=== PATIENT | female | born 1990 | race Caucasian/White ===

== ENCOUNTER 2019-03-11 19:29 | Inpatient (IN) | payer OTHER ==
[~2019-03-11] VITALS: Ht 167.6 cm; Wt 81.0 kg
[~2019-03-11 19:29] MED LIST: COLACE100 MG PO; IBUPROFEN400 MG PO; IMITREX5 MG NS; NAPROXEN500 MG PO; NORCO 5-325 TA1 EACH PO; NUVARING VAGIN1 EACH VG; PERCOCET 7.5-31 EACH PO; SERTRALINE HCL25 MG PO; VITAFOL-OB+DHA1 EACH PO; ZOFRAN4 MG PO
[2019-03-11] MEDS ORDERED: ZOLOFT25 MG PO (21:46)
[2019-03-11] MEDS ORDERED: FIBER500 MG PO (21:47)
[2019-03-11] MEDS ORDERED: IRON325 M1 PO (21:47)
--- NOTE | 2019-03-11 23:03 | PR ---
[facility] [address] [facility] [place], [place] [address] Signed Progress Notes IP Datetime Report Generated by CPPamdini: 03/11/2019 23:03 PROGRESS NOTES: [id number] Impression: Normal progression of labor Procedures: Artificial ROM; Sterile Vag Exam Plan: Continue present management Informed Consent Obtain: Vaginal Delivery; Risks, Benefits and Alternatives Discussed VITAL SIGNS: [id number] Vital Signs: Reviewed; Within Normal Limits EXAM: [id number] Dilatation: 4.0 Effacement: 90 Station: -2 Uterine Contractions: q 1 to 2 min MEMBRANES: [id number] Membrane Status: Intact ROM Note: AROM with moderate clear fluid seen Comments: Becoming more comfortable after epidural. Progressing slowly. Will continue. Fetus A: [id number] FHR Baseline: 145 Variability: Moderate 6-25bpm Accelerations: None Decelerations: None FHR Category: Category II Presentation: Vertex Comments on Fetus A: reassuring with moderate variability Fetus B: [id number] Signing Physician: Daina Thurston MD Copies: ~ *Electronically Signed* 03/11/19 6593 DAINA THURSTON MD PATIENT NAME: TOPHER GANDHI PROGRESS NOTE DATE OF : [birth year] PHYSICIAN: DAINA THURSTON MD RPT #: [id number] REPORT IS CONFIDENTIAL AND NOT TO BE RELEASED WITHOUT AUTHORIZATION
--- NOTE | 2019-03-13 08:20 | PR ---
[facility] [address] [facility] [place], [place] [address] Signed PP Progress Notes Datetime Report Generated by CPN: 03/13/2019 08:20 SUBJECTIVE: [id number] Pain: Within normal limits Vital Signs: [id number] Vital Signs: Reviewed; Within Normal Limits EXAM: [id number] Cardiovascular: Not Done Respiratory: Not Done Abdomen/Uterus: Abnormal Lochia: Normal Vulva/Perineum: Not Done Breasts: Not Done CVA Tenderness: Not Done Extremities: Normal Incision: Not Applicable Progress: Normal Exam Comments: Fundus firm, NT @ U-1 H/H 11.6/34.4, WBC 16.7, plat 259k IMPRESSION/PLAN/PROCEDURES: [id number] Impression: Normal progression Plan: Discharge Procedures: Rhogam Progress Notes: Doing well. She is ready for D/C. Signing Physician: Daina Thurston MD Copies: ~ *Electronically Signed* 03/13/19819 DAINA THURSTON MD PATIENT NAME: TOPHER GANDHI STANLEY PROGRESS NOTE DATE OF : 91 PHYSICIAN: DAINA THURSTON MD RPT #: [id number] REPORT IS CONFIDENTIAL AND NOT TO BE RELEASED WITHOUT AUTHORIZATION
== END 2019-03-13 11:25 | disposition home or self-care (01) | DRG 807 ==
LOC: FBCO 19:29 → FBC 21:20 → FBCO 03-15 08:31
PROVIDERS: ADMIT Obstetrics & Gynecology
PROC: 10907ZC Drainage of Amniotic Fluid, Therapeutic from Products of Conception, Via Natural or Artificial Opening (ICD-10-PCS; 2019-03-11)
PROC: 00HU33Z Insertion of Infusion Device into Spinal Canal, Percutaneous Approach (ICD-10-PCS; 2019-03-11)
PROC: 3E0R3BZ Introduction of Anesthetic Agent into Spinal Canal, Percutaneous Approach (ICD-10-PCS; 2019-03-11)
PROC: 10E0XZZ Delivery of Products of Conception, External Approach (ICD-10-PCS; principal; 2019-03-12)
PROC: 3E0234Z Introduction of Serum, Toxoid and Vaccine into Muscle, Percutaneous Approach (ICD-10-PCS; 2019-03-13)
DX: O43.113 Circumvallate placenta, third trimester (principal); Z37.0 Single live birth; Z3A.39 39 weeks gestation of pregnancy; O76 Abnormality in fetal heart rate and rhythm complicating labor and delivery; O99.344 Other mental disorders complicating childbirth; F32.9 Major depressive disorder, single episode, unspecified; O26.893 Other specified pregnancy related conditions, third trimester; Z67.41 Type O blood, Rh negative; Z79.899 Other long term (current) drug therapy
CPT/HCPCS: 01960; 36415; 59025; 83030; 85027; 86850; 86900; 86901; 99213; J2590; J2790; J7120

== ENCOUNTER 2023-04-19 09:32 | Day surgery (SDC) | payer OTHER ==
[~2023-04-19] VITALS: Ht 167.6 cm; Wt 75.8 kg
--- NOTE | ~2023-04-19 | OR ---
[facility] [address] [place], [place] [address] Draft DATE OF OPERATION: 04/19/2023 SURGEON: Jeevan Marcos MD PREOPERATIVE DIAGNOSIS: Chronic constipation. POSTOPERATIVE DIAGNOSIS: Normal-appearing colon. PROCEDURE: Total colonoscopy to cecum with cold biopsy of rectum. ANESTHESIA: Intravenous sedation fentanyl 100 mcg, Versed 6 mg. INDICATION: This 32-year-old white woman has had essentially lifelong significant and severe constipation. She will go sometimes 2-3 weeks without bowel movement. She has tried probiotic medication, magnesium based preparation and so forth, none of which have been too successful for her. She does have abdominal pain associated with her chronic constipation. She has had occasional blood per rectum. Her only medications include phentermine as well as a probiotic pill and a control ring. She is admitted at this time to undergo colonoscopy to better characterize her problem, understand the risk of bleeding, infection, and perforation. FINDINGS: The prep was excellent. Complete colonoscopy was undertaken of the cecum without question. She had no sign of stricture, neoplasm, diverticular problems, colitis, or other abnormality. PROCEDURE IN DETAIL: The patient was brought to the endoscopy suite and placed in lateral decubitus position given intravenous sedation to the point of slurred speech and nystagmus. Digital rectal examination was normal. An Olympus video colonoscope was passed in the rectum and manipulated throughout the colon ultimately intubating the cecum itself. The ileocecal valve and appendiceal orifice were normal. The scope was withdrawn. Examination throughout showed no evidence of abnormality in any way. Biopsies were taken of the rectum and retroflexed PATIENT NAME: TOPHER GANDHI OPERATIVE REPORT DATE OF : [birth year] REPORT #: [id number] PHYSICIAN: JEEVAN MARCOS MD PCP: TITA REDDY REPORT IS CONFIDENTIAL AND NOT TO BE RELEASED WITHOUT AUTHORIZATION [address] [address] Draft view was performed and was normal. Scope was removed. The patient was taken to recovery room in good condition. CONCLUDING DIAGNOSIS: Normal colon. She clinically has a chronic constipation problem, likely of a dysmotility origin. For now, we will prescribe MiraLAX one scoop p.o. daily and set up for a Sitz fer stool transit study. She will return to see me after that study is complete. MD ZELDA Rogel/NEFTALI /[id number] cc: Tita Reddy PA-C Copies: TITA REDDY ~ PATIENT NAME: TOPHER GANDHI STANLEY OPERATIVE REPORT DATE OF : [birth year] REPORT #: [id number] PHYSICIAN: JEEVAN MARCOS MD PCP: TITA REDDY PAC REPORT IS CONFIDENTIAL AND NOT TO BE RELEASED WITHOUT AUTHORIZATION
[~2023-04-19 09:32] MED LIST changes: +ELURYNG VAGINA1 EACH VG; +FIBER500 MG PO; +IRON325 M1 PO; +PHENTERMINE HCL15 MG PO; +ZOLOFT25 MG PO
[2023-04-19 09:47] VITALS: BP 122/87
[2023-04-19 12:03] VITALS: BP 107/67
--- NOTE | 2023-04-19 12:09 | NUR ---
04/19/23 1209 Maria Alejandra Osborn 1111 PT ARRIVED IN PACU SLEEPY WITH NO C/O'S. ABD SOFT. IV PATENT IN RAC. 1120 DR AT BEDSIDE. ALL QUESTIONS ANSWERED. 1126 SITTING UP IN BED SIPPING ON WATER. PILL TAKEN FOR SITZ MARKER TEST AND ALL INSTRUCTIONS GIVEN. 1135 GETTING DRESSED. 1150 IV DC'D. TIP INTACT. TERESO AND DANIELA OVER SITE. 1152 DC INSTRUCTIONS GIVEN TO PT/SPOUSE. COPY OF XRAY ORDER GIVEN TO ADMITTING. LEFT VIA W/C.
--- NOTE | 2023-04-21 14:46 | PATH ---
[facility] [address] [place], [place] [address] Signed SPECIMEN(S): A RECTAL BIOPSY SPECIMEN SOURCE: A. RECTAL BIOPSY CLINICAL HISTORY: Colonoscopy. Severe constipation FINAL PATHOLOGIC DIAGNOSIS: Rectal biopsy: - Benign colonic mucosa with focal slight hyperplastic features (one fragment). JVR:sm:C2NR MICROSCOPIC EXAMINATION: Histologic sections of all submitted blocks are examined by light microscopy. These findings, together with the gross examination, support the pathologic diagnosis. GROSS DESCRIPTION: The specimen, labeled and designated "Hiram rectal biopsy," is received in formalin and consists of three barrientos soft tissue fragments, ranging from 0.3 to 0.4 cm. Entirely submitted in (A1). VB (under the direct supervision of a pathologist) The Gross Description was prepared using a voice recognition system. The report was reviewed for accuracy; however, sound-alike word errors, addition and/or deletions may occur. If there is any question about this report, please contact Client Services. PERFORMING LABORATORY: The technical component was performed by [email or web address], [address] [place] [id number] (CLIA# [id number]). Professional interpretation was performed by [email or web address], [address] [place] [id number] (CLIA#: [id number]). Diagnostician: Quincy Barba MD Pathologist Electronically Signed 04/21/2023 Copies: PATIENT NAME: TOPHER GANDHI STANLEY PATHOLOGY DATE OF : [birth year] REPORT #: [id number] PHYSICIAN: LAVERN LAMAR PCP: ALISIA CORTÉS REPORT IS CONFIDENTIAL AND NOT TO BE RELEASED WITHOUT AUTHORIZATION [address] [address] Signed ~ PATIENT NAME: HIRAMTOPHERNOLAN ANGEL PATHOLOGY DATE OF : [birth year] REPORT #: [id number] PHYSICIAN: LAVERN LAMAR PCP: ALISIA CORTÉS REPORT IS CONFIDENTIAL AND NOT TO BE RELEASED WITHOUT AUTHORIZATION
== END 2023-04-19 11:52 | disposition home or self-care (01) ==
LOC: OPS 09:32 → DS 09:36 → OPS 11:52 → DS 14:00
PROVIDERS: ATTEND Surgery
PROC: 0DBP8ZX Excision of Rectum, Via Natural or Artificial Opening Endoscopic, Diagnostic (ICD-10-PCS; principal; 2023-04-19 14:00)
DX: K59.09 Other constipation (principal); K62.5 Hemorrhage of anus and rectum; K35.80 Unspecified acute appendicitis; M54.30 Sciatica, unspecified side
CPT/HCPCS: 84703; 99153; G0500; J2250; J3010; J7121